=== PATIENT | male | born 1950 | race Caucasian/White ===

== ENCOUNTER 2020-09-29 16:59 | Emergency (ER) | payer MEDICARE, OTHER ==
[~2020-09-29] VITALS: Ht 170.2 cm; Wt 67.1 kg
--- NOTE | 2020-09-29 17:10 | NUR ---
G TUBE REPLACED BY .
[2020-09-29] MEDS ORDERED: DIATR MEGLU/DIATRIZOATE SODIUM 30 ML BOTTLE (GASTROGRAPHIN) ONE (17:12)
--- NOTE | 2020-09-29 17:31 | NUR ---
Patient discharged [facility] in stable condition via ambulance w/ 2 ambulance staff. Written and verbal after care instructions given to ambulance staff.
[2020-09-29 17:34] VITALS: BP 148/75
== END 2020-09-29 17:34 | disposition home or self-care (01) ==
LOC: ER 17:06
DX: K94.23 Gastrostomy malfunction (principal); F03.90 Unspecified dementia, unspecified severity, without behavioral disturbance, psychotic disturbance, mood disturbance, and anxiety; K21.9 Gastro-esophageal reflux disease without esophagitis; F41.9 Anxiety disorder, unspecified; F32.9 Major depressive disorder, single episode, unspecified; F25.9 Schizoaffective disorder, unspecified; Z86.73 Personal history of transient ischemic attack (TIA), and cerebral infarction without residual deficits
CPT/HCPCS: 43762; 74018; 99284; Q9963

== ENCOUNTER 2021-01-27 00:53 | Inpatient (IN) | payer MEDICARE, OTHER ==
[~2021-01-27] VITALS: Ht 167.6 cm; Wt 61.0 kg
--- NOTE | 2021-01-27 00:58 | NUR ---
PATIENT CAME TO THE ER BED 9 FROM [facility] C/O "PULLED OUT G-TUBE" ABOUT 2x HR AGO [employer]. PATIENT IS AAOX1. PATIENT HAS HX OF DEMENTIA. PATIENT IS BREATHING EVENLY AND UNLABORED ON ROOM AIR. CONNECTED TO THE MONITOR.
--- NOTE | 2021-01-27 01:11 | NUR ---
MD AT BEDSIDE FOR G-TUBE INSERTION. UNABLE TO INSERT DUE TO CLOSED SURGICAL SITE.
[2021-01-27 01:36] LABS: BASOPHILS # (AUTO) 0.2 /CMM (0.0-0.2); BASOPHILS % (AUTO) 2.6 % (0.0-2.0); EOSINOPHILS % (AUTO) 7.3 % (0.0-6.0); HEMATOCRIT 47 % (39-51); HEMOGLOBIN 15.9 g/dL (13.5-17.5); LYMPHOCYTES % (AUTO) 26.9 % (20.0-44.0); MEAN CORPUSCULAR HGB CONC 34 g/dl (31.0-36.0); MEAN CORPUSCULAR VOLUME 93 fL (80-96); MONOCYTES # (AUTO) 0.3 /CMM (0.1-1.30); MONOCYTES % (AUTO) 3.9 % (2.0-12.0); NEUTROPHILS # (AUTO) 4.5 /CMM (1.8-8.9); NEUTROPHILS % (AUTO) 59.3 % (43.0-81.0); PLATELET COUNT (AUTO) 211 /CMM (150-450); RED BLOOD CELL COUNT(AUTO) 5.07 MIL/uL (4.5-6.0); WHITE BLOOD COUNT (AUTO) 7.5 K/uL (4.3-11.0)
[2021-01-27 01:46] LABS: CALCIUM, SERUM 8.7 mg/dL (8.5-10.1); CREATININE 0.6 mg/dL (0.6-1.3); POTASSIUM 4.6 mmol/L (3.5-5.1)
--- NOTE | 2021-01-27 02:18 | NUR ---
LAB CALLED FOR COVID NEGATIVE
--- NOTE | 2021-01-27 02:30 | NUR ---
CALLED NURSING SUP FOR MS BED
--- NOTE | 2021-01-27 04:01 | NUR ---
m/s 310-1
--- NOTE | 2021-01-27 04:10 | NUR ---
REPORT GIVEN TO YANIRA LEI FOR YON.
--- NOTE | 2021-01-27 04:42 | NUR ---
PATIENT TAKEN UP TO ASSIGNED ROOM FOR YON.
[2021-01-27 04:45] VITALS: BP 192/74
--- NOTE | 2021-01-27 04:45 | NUR ---
RN NOTES Received pt. from ER with Dx. of G-tube Reinsertion, pt, is a/ox1, left hand is contracted, right arm has soft wrist restraint, make pt. comfortable, morning care rendered, siderailsupx2, will continue to monitor
[2021-01-27 05:00] VITALS: BP 192/74
[2021-01-27] MEDS ORDERED: MORPHINE SULFATE INJ 2 MG/ML DISP.SYRIN IV PRN (06:30)
[2021-01-27] MEDS ORDERED: Z GUARD REMEDY 2 OZ OINT TP PRN (06:30)
[2021-01-27 06:55] VITALS: BP 138/83
--- NOTE | 2021-01-27 06:55 | NUR ---
RN NOTES Rechecked pt. blood pressure, 138/83 HR-52, not indistress, no pain noted, pt. needs attended
[2021-01-27] MEDS: IV D5/0.45 NACL 1,000 ML IV PRN ×2 (06:56→21:14)
[2021-01-27] MEDS ORDERED: ENALAPRILAT INJ (1.25 MG/ML) 1.25 MG/ML VIAL IV PRN (07:00)
--- NOTE | 2021-01-27 07:00 | NUR ---
RN NOTES Endorsed to dayshift nurse to follow up for the MED recon nurse to reconcile the medication
[2021-01-27] MEDS ORDERED: LANS30CA56 GT (07:45)
[2021-01-27] MEDS ORDERED: MULT-447 GT (07:45)
[2021-01-27] MEDS ORDERED: QUET25TA GT (07:45)
[2021-01-27] MEDS ORDERED: CRAN3875 GT (07:45)
[2021-01-27] MEDS ORDERED: ACET-2605 GT (07:45)
[2021-01-27] MEDS ORDERED: ASCO-352 GT (07:45)
[2021-01-27] MEDS ORDERED: SERT25TA GT (07:45)
[2021-01-27] MEDS ORDERED: MAGN400O6 GT (07:45)
[2021-01-27] MEDS ORDERED: HYDR-4209 GT (07:45)
[2021-01-27] MEDS ORDERED: DOCU50LI GT (07:45)
[2021-01-27] MEDS ORDERED: LACT-209 GT (07:45)
[2021-01-27] MEDS ORDERED: LISI20TA30 GT (07:45)
[2021-01-27] MEDS ORDERED: ASPI-1169 GT (07:45)
[2021-01-27] MEDS ORDERED: BISA10SU11 RC (07:45)
[2021-01-27] MEDS ORDERED: CRAN425C6 GT (07:45)
[2021-01-27] MEDS ORDERED: TYL2T GT (07:45)
[2021-01-27] MEDS ORDERED: ACET-868 GT (07:45)
--- NOTE | 2021-01-27 08:00 | NUR ---
MS RN NOTES PATIENT IN BED ALERT ORIENTED X1. NO ACUTE DISTRESS NOTED. BREATHING UNLABORED.IV ACCESS PATENT AND INTACT, NO BLEEDING . NO SWELLING NOTED. BILATERAL SOFT RESTRAINT CHECKED WITH GOOD CIRCULATION. SAFETY MEASURES IN PLACE. CALL LIGHT WITHIN REACH. WILL CONTINUE TO MONITOR ACCORDINGLY
--- NOTE | 2021-01-27 08:22 | NUR ---
MS LEI NOTES PATIENT SEEN AND EVALUATED BY DR TINA JOE WITH NEW ORDER MADE FOR TO OBTAIN CONSENT FOR GASTROSTOMY TUBE PLACEMENT ALREADY SPOKE WITH DR KEYONA DOLAN FOR TOMORROW, ORDER CLARIFIED AND READ BACK WITH MD , NOTED AND CARRIED OUT. Addendum: 01/27/21 at 0848 by CHAD KAMARA RN ADDENDUM: ALSO MENTIONED TO DOCTOR REGARDING MEDICATION RECONCILIATION NEEDS TO BE DONE.
[2021-01-27 08:36] VITALS: BP 172/98
[2021-01-27] MEDS: PANTOPRAZOLE 40 MG VIAL IV SCH (10:01)
[2021-01-27] MEDS ORDERED: BISACODYL SUPP (10 MG) 10 MG/SUPP.RECT SUPP.RECT RC PRN (10:30)
[2021-01-27 16:00] VITALS: BP 178/92
--- NOTE | 2021-01-27 19:00 | NUR ---
MS RN NOTES PATIENT IN BED ALERT ORIENTED X1. NO ACUTE DISTRESS NOTED. BREATHING UNLABORED.IV ACCESS PATENT AND INTACT, NO BLEEDING . NO SWELLING NOTED. BILATERAL SOFT RESTRAINT CHECKED WITH GOOD CIRCULATION. NEEDS ATTENDED AND ANTICIPATED. SAFETY MEASURES IN PLACE. CALL LIGHT WITHIN REACH. WILL ENDORSE TO NIGHT NURSE FOR CONTINUITY OF CARE.
--- NOTE | 2021-01-27 19:35 | NUR ---
QUIQUE MS opening notes Received Pt from morning nurse. Pt is laying in bed comfortably awake and watching TV. Pt is alert and orientedX1 and confused. Pt speaks Ethiopian and able to make needs known. Respiration is normal in room air. NO SOB. No S/S of distress noted. Noted L sided weakness. IV site at R forearm# 20 is clean, intact and infuising well D5 1/2 NS @60 ml/hr. Pt status is NPO. Bilateral soft wrists restraint are intact, skin is warm to touch and circulation is check Q 2 HR. Safety precautions is maintained. Bed at low position, brakes locked, side rails upX3, hob elevated and call light is within reach. Will continue to monitor. Addendum: 01/27/21 at 2107 by ARTURO BORJAS RN R hand soft wrist restraints is intact, skin is warm to touch and circulation is check Q 2 hr.
[2021-01-27 20:00] VITALS: BP 154/70
[2021-01-27] MEDS: ACETAMINOPHEN 650 MG/SUPP.RECT RC PRN (21:00)
--- NOTE | 2021-01-27 21:00 | NUR ---
RN notes Pt is complaining of mild pain on his abdomen and requesting meds. Administered tylenol 650 mg/supp/prn as ordered. Safety precautions is maintained. Will continue to monitor.
--- NOTE | 2021-01-27 23:35 | NUR ---
RN notes Inserted new IV site at RFA#20 with good blood returned. New IV site is clean, intact and flushes well. Will continue to monitor.
[2021-01-28 06:28] LABS: BASOPHILS % (AUTO) 0.3 % (0.0-2.0); HEMATOCRIT 48 % (39-51); LYMPHOCYTES # (AUTO) 2.3 /CMM (0.8-4.8); LYMPHOCYTES % (AUTO) 25.2 % (20.0-44.0); MEAN CORPUSCULAR HGB CONC 34 g/dl (31.0-36.0); MEAN CORPUSCULAR VOLUME 93 fL (80-96); MONOCYTES # (AUTO) 0.6 /CMM (0.1-1.30); MONOCYTES % (AUTO) 6.3 % (2.0-12.0); NEUTROPHILS # (AUTO) 5.8 /CMM (1.8-8.9); NEUTROPHILS % (AUTO) 63.2 % (43.0-81.0); PLATELET COUNT (AUTO) 214 /CMM (150-450); RED BLOOD CELL COUNT(AUTO) 5.13 MIL/uL (4.5-6.0); WHITE BLOOD COUNT (AUTO) 9.2 K/uL (4.3-11.0)
--- NOTE | 2021-01-28 06:45 | NUR ---
RN MS closing notes Pt is resting in bed comfortably. Pt is alert and orientedX1 and confused. Pt speaks Sudanese and able to make needs known. Respiration is normal in room air. NO SOB. No S/S of distress noted. IV site at R forearm# 20 is clean, intact and infuising well D5 1/2 NS @60 ml/hr. Pt status is NPO. R soft wrists restraint is intact, skin is warm to touch and circulation is check Q 2 HR. Kept Pt clean, dry and comfortable. Safety precautions is maintained. Bed at low position, brakes locked, side rails upX3, hob elevated and call light is within reach. Will endorse to morning nurse for YON.
[2021-01-28 07:07] LABS: CALCIUM, SERUM 8.7 mg/dL (8.5-10.1); CREATININE 0.7 mg/dL (0.6-1.3); POTASSIUM 4.4 mmol/L (3.5-5.1)
--- NOTE | 2021-01-28 07:43 | NUR ---
MS RN OPENING NOTES RECEIVED PATIENT IN BED, AWAKE, CONFUSED. PATIENT ON ROOM AIR; BREATHING EVEN AND UNLABORED, NO SOB NOTED AT THIS TIME. NO S/S OF PAIN SUCH FACIAL GRIMACING, MOANING OR GUARDING. IV ACCESS AT RFA G # 20 INFUSING D5 1/2 NS @60 MLS/HR. R SOFT WRIST RESTRAIN ON. SAFETY PRECAUTIONS IN PLACE; BED IN LOCKED POSITION AND LOCKED, RAILS UP X2, CALL LIGHT WITHIN REACH. WILL CONTINUE TO MONITOR PATIENT.
[2021-01-28 08:00] VITALS: BP 180/100
[2021-01-28] MEDS: PANTOPRAZOLE 40 MG VIAL IV SCH (08:19)
--- NOTE | 2021-01-28 08:20 | NUR ---
MS RN NOTES PATIENT NOTED WITH HIGH BP 180/100. PRN MEDICATION VASOTEC ADMINISTERED PER MD ORDER.
[2021-01-28] MEDS ORDERED: NITROGLYCERIN PACKET 1 GM PACKET TOP ONE (08:30)
[2021-01-28] MEDS ORDERED: ANESTHESIA TRAY IN PYXIS 1 EA TRAY MC ONE (09:53)
--- NOTE | 2021-01-28 12:35 | NUR ---
MS RN NOTES PATIENT BACK FROM OR WITH A NEW D-TUBE. VS WNL: BP 142/80 HR 61 TEMP 98.3 RR 18 O2 96% WILL CONTINUE TO MONITOR
[2021-01-28 16:00] VITALS: BP 156/107
[2021-01-28] MEDS: ACETAMINOPHEN 650 MG/SUPP.RECT RC PRN (17:51)
--- NOTE | 2021-01-28 17:53 | NUR ---
MS RN NOTES PATIENT COMPLAINING OF PAIN AT THE G-TUBE SITE; REQUESTING MEDICATION PRN TYLENOL SUPP ADMINISTERED.
--- NOTE | 2021-01-28 18:55 | NUR ---
MS RN CLOSING NOTES PATIENT IN BED, AWAKE, STILL WITH PERIODS OF CONFUSION. PATIENT ON ROOM AIR; BREATHING EVEN AND UNLABORED, NO SOB NOTED AT THIS TIME. PAIN TREATED WITH SUPP PRN TYLENOL. IV ACCESS AT RFA G # 20 INFUSING D5 1/2 NS @60 MLS/HR. R SOFT WRIST RESTRAIN REMAINS ON. NEW G-TUBE INSERTED BY MD TODAY. ALL NEEDS ATTENDED THROUGHOUT THE DAY. SAFETY PRECAUTIONS IN PLACE; BED IN LOCKED POSITION AND LOCKED, RAILS UP X2, CALL LIGHT WITHIN REACH. WILL ENDORSE TO PATIENT ACCESS REGISTRAR NURSE.
--- NOTE | 2021-01-28 19:37 | NUR ---
MS RN OPENING NOTES PATIENT RESTING IN BED A/OX1. ON ROOM AIR TOLERATING WELL WITH NO SOB. NO S/S OF PAIN OR DISCOMFORT AT THIS TIME. RFA G#20 D5 1/2NS @ 60 ML/HR; PATENT AND INTACT. GTUBE PEG INTACT. ABDOMINAL DRESSING IS ON. SOFT RESTRAINT TO RIGHT WRIST; NO SKIN BREAKDOWN TO RIGHT WRIST. MAINTAINED NPO DIET. SAFETY PRECAUTIONS IN PLACE: BED IN LOWEST LOCKED POSITION; SIDE RAILS UPX2, FAISAL LIGHT WITHIN EASY REACH, BED ALARMS ON. PATIENT MEDICALLY STABLE AND WILL CONTINUE PLAN OF CARE.
[2021-01-28 20:00] VITALS: BP 124/74
[2021-01-28] MEDS: IV D5/0.45 NACL 1,000 ML IV PRN (22:35)
[2021-01-29] MEDS ORDERED: JEVITY 1.2 CAL 1,000 ML BOTTLE GT PRN (06:00)
--- NOTE | 2021-01-29 06:39 | NUR ---
MS RN CLOSING NOTES PATIENT AWAKE IN BED A/OX1. ON ROOM AIR TOLERATING WELL WITH NO SOB. NO S/S OF PAIN OR DISCOMFORT AT THIS TIME. RFA G#20 D5 1/2NS @ 60 ML/HR; PATENT AND INTACT. GTUBE PEG INTACT; CHECKED CORRECT PLACEMENT AND HEARD BUBBLING IN STOMACH; INITIATED JEVITY 1.2 @ 20ML/HR; TOLERATING WELL. ABDOMINAL DRESSING IS ON. SOFT RESTRAINT TO RIGHT WRIST; NO SKIN BREAKDOWN TO RIGHT WRIST. MAINTAINED NPO DIET. SAFETY PRECAUTIONS IN PLACE: BED IN LOWEST LOCKED POSITION; PADDED SIDE RAILS UPX3, CALL LIGHT WITHIN EASY REACH, BED ALARMS ON. PATIENT MEDICALLY STABLE AND WILL ENDORSE PLAN OF CARE TO ONCOMING MORNING RN.
--- NOTE | 2021-01-29 08:03 | NUR ---
RN OPENING NOTE PT IS AWAKE IN BED. A/O X 1 AND CONFUSED. ARABIC SPEAKING. NO COMPLAINT OF PAIN OR NAUSEA. ON RA WITH NO SOB OR RESPIRATORY DISTRESS PRESENT. ON BEDREST AND INCONTINENT. SKIN IS INTACT. NO EDEMA PRESENT. L ARM IS CONTRACTED. G TUBE PRESENT. HL PRESENT ON R FA 20G. SAFETY MEASURES IN PLACE. SIDE RAILS RAISED. BED LOWERED. CALL LIGHT WITHIN REACH. WILL CONTINUE TO MONITOR.
[2021-01-29] MEDS: PANTOPRAZOLE 40 MG VIAL IV SCH (08:38)
[2021-01-29 08:53] VITALS: BP 182/115
[2021-01-29] MEDS ORDERED: ASPIRIN 81 MG TAB.CHEW GT SCH (09:00)
[2021-01-29] MEDS ORDERED: LISINOPRIL (20MG) 20 MG TABLET GT SCH (09:00)
[2021-01-29 09:53] VITALS: BP 182/115
--- NOTE | 2021-01-29 13:28 | NUR ---
CESSATION SYSTEMS OUTREACH SPECIALIST NOTE PT DISCHARGED TO [facility] VIA AMBULANCE. GAVE REPORT TO THE NURSING [employer], [employer]. FAMILY AWARE OF DISCHARGE. PATIENT V/S STABLE. IV SITE REMOVED. ID BAND REMOVED. EXITCARE UTILIZED AND EDUCATION GIVEN.
[2021-01-30] MEDS ORDERED: PANTOPRAZOLE 40 MG/PACK PACK GT SCH (09:00)
== END 2021-01-29 13:15 | DRG 393 ==
LOC: ER 00:56 → MED 04:21
PROVIDERS: ADMIT Internal Medicine; ATTEND Internal Medicine
PROC: 0D20XUZ Change Feeding Device in Upper Intestinal Tract, External Approach (ICD-10-PCS; principal; 2021-01-28)
DX: K94.23 Gastrostomy malfunction (principal); N17.0 Acute kidney failure with tubular necrosis; G93.49 Other encephalopathy; Y83.3 Surgical operation with formation of external stoma as the cause of abnormal reaction of the patient, or of later complication, without mention of misadventure at the time of the procedure; Y92.9 Unspecified place or not applicable; F03.90 Unspecified dementia, unspecified severity, without behavioral disturbance, psychotic disturbance, mood disturbance, and anxiety; I10 Essential (primary) hypertension; Z86.73 Personal history of transient ischemic attack (TIA), and cerebral infarction without residual deficits; K21.9 Gastro-esophageal reflux disease without esophagitis; M62.50 Muscle wasting and atrophy, not elsewhere classified, unspecified site; M24.572 Contracture, left ankle; F41.9 Anxiety disorder, unspecified; F32.9 Major depressive disorder, single episode, unspecified; F25.9 Schizoaffective disorder, unspecified; R13.10 Dysphagia, unspecified; R00.1 Bradycardia, unspecified; K29.70 Gastritis, unspecified, without bleeding; Z20.822 Contact with and (suspected) exposure to COVID-19
CPT/HCPCS: 36415; 43760; 71045-TC; 80048-TC; 85025-TC; 85610-TC; 85730-TC; 87081-TC; 93307-TC; C9113; C9803; G0378; J0690; J2704; J3490

== ENCOUNTER 2025-03-13 14:57 | Inpatient (IN) | payer MEDICARE, OTHER ==
[~2025-03-13] VITALS: Ht 167.6 cm; Wt 59.2 kg
[~2025-03-13 14:57] MED LIST: ACET-2605 GT; ACET-868 GT; ASCO-352 GT; ASPI-1169 GT; BISA10SU11 RC; CRAN3875 GT; CRAN425C6 GT; DOCU50LI GT; DOXY100T2 GT; HYDR-4209 GT; LACT-209 GT; LANS30CA56 GT; LISI20TA30 GT; MAGN400O6 GT; MULT-447 GT; QUET25TA GT; SERT25TA GT; TYL2T GT
[2025-03-13 15:36] LABS: BASOPHILS % (AUTO) 0.4 % (0.0-2.0); EOSINOPHILS # (AUTO) 0.1 K/uL (0.0-0.7); EOSINOPHILS % (AUTO) 1.8 % (0.0-6.0); HEMATOCRIT 36 % (39-51); HEMOGLOBIN 12.4 g/dL (13.5-17.5); LYMPHOCYTES # (AUTO) 1.3 K/uL (0.8-4.8); LYMPHOCYTES % (AUTO) 23.3 % (20.0-44.0); MEAN CORPUSCULAR HEMOGLOBIN 31 PG (26.0-33.0); MEAN CORPUSCULAR HGB CONC 34 g/dl (31.0-36.0); MEAN CORPUSCULAR VOLUME 90 fL (80-96); MONOCYTES # (AUTO) 0.4 K/uL (0.1-1.30); MONOCYTES % (AUTO) 6.8 % (2.0-12.0); NEUTROPHILS # (AUTO) 3.8 K/uL (1.8-8.9); NEUTROPHILS % (AUTO) 67.7 % (43.0-81.0); PLATELET COUNT (AUTO) 359 K/uL (150-450); RED BLOOD CELL COUNT(AUTO) 4.02 MIL/uL (4.5-6.0); RED CELL DISTRIBUTION WIDTH 14.5 % (11.5-15.0); WHITE BLOOD COUNT (AUTO) 5.6 K/uL (4.3-11.0)
[2025-03-13 15:45] LABS: CALCIUM, SERUM 8.8 mg/dL (8.5-10.1); CARBON DIOXIDE 29 mmol/L (21-32); CHLORIDE 102 mmol/L (98-107); CREATININE 0.5 mg/dL (0.6-1.3); GLUCOSE 94 mg/dL (74-106); SODIUM SERUM 133 mmol/L (136-145); UREA NITROGEN, BLOOD 10 mg/dL (7-18)
[2025-03-13 15:50] LABS: ALANINE AMINOTRANSFERASE 27 U/L (12-78); ALBUMIN 2.7 g/dL (3.4-5.0); ALKALINE PHOSPHATASE 137 U/L (46-116); ASPARTATE AMINOTRANSFERASE 46 U/L (15-37); BILIRUBIN,DIRECT 0.2 mg/dL (0.0-0.2); BILIRUBIN,TOTAL 0.6 mg/dL (0.2-1.0); TOTAL PROTEIN, SERUM 7.7 g/dL (6.4-8.2)
[2025-03-13 15:53] LABS: LACTIC ACID 0.7 mmol/L (0.4-2.0)
[2025-03-13 15:57] LABS: INR 1.03 (0.91-1.10); PARTIAL THROMBOPLASTIN TIME 29.6 SEC (24.3-34.3); PROTHROMBIN TIME 10.9 SECS (9.2-11.1)
[2025-03-13] MEDS ORDERED: diphenhydrAMINE HCL 50 MG/ML VIAL ONE (16:00)
[2025-03-13] MEDS: IV NS 0.9% 1,000 ML BAG IV ONE (16:17)
[2025-03-13] MEDS: diphenhydrAMINE HCL 50 MG/ML VIAL IV ONE (16:18)
[2025-03-13] MEDS: PIPERACILLIN /TAZOBACTAM 3.375 G in IV D5W 50 ML IV ONE (16:19)
[2025-03-13] MEDS: VANCOMYCIN 1 GM in IV D5W 250 ML IV ONE (16:35)
[2025-03-13] MEDS ORDERED: ACETAMINOPHEN 325 MG TABLET PO PRN (17:30)
[2025-03-13] MEDS ORDERED: MAGNESIUM HYDROXIDE 30 ML UDC PO PRN (17:30)
[2025-03-13] MEDS ORDERED: Z GUARD REMEDY 4 OZ OINT TP PRN (17:30)
[2025-03-13] MEDS ORDERED: MAG HYDROX/AL HYDROX/SIMETH 30 ML UDC PO PRN (17:30)
[2025-03-13] MEDS ORDERED: ONDANSETRON HCL/PF 4 MG/2 ML VIAL IVP PRN (17:30)
[2025-03-13] MEDS ORDERED: ZOLPIDEM TARTRATE 5 MG TABLET PO PRN (17:30)
[2025-03-13 18:00] VITALS: BP 142/85; TEMP 97.5; O2SAT 96
[2025-03-13] MEDS ORDERED: MAGNESIUM HYDROXIDE 30 ML UDC GT PRN ×2 (18:14→18:30)
[2025-03-13] MEDS ORDERED: MAG HYDROX/AL HYDROX/SIMETH 30 ML UDC GT PRN (18:15)
[2025-03-13] MEDS: ENOXAPARIN SODIUM 40 MG/0.4 ML DISP.SYRIN SQ SCH (18:44)
[2025-03-13 20:00] VITALS: BP 130/103; TEMP 97.9; O2SAT 95
[2025-03-13] MEDS: QUETIAPINE FUMARATE 25 MG TABLET GT SCH (20:44)
[2025-03-13] MEDS: DOCUSATE SODIUM LIQ 100 MG/10 ML UDC GT SCH (21:22)
[2025-03-13] MEDS: PIPERACILLIN /TAZOBACTAM 3.375 G in IV D5W 100 ML IV SCH (23:15)
[2025-03-14] MEDS: VANCOMYCIN 1 GM in IV D5W 250ml IV SCH (02:10)
[2025-03-14 06:04] LABS: BASOPHILS % (AUTO) 0.3 % (0.0-2.0); EOSINOPHILS # (AUTO) 0.1 K/uL (0.0-0.7); EOSINOPHILS % (AUTO) 1.4 % (0.0-6.0); HEMATOCRIT 34 % (39-51); HEMOGLOBIN 11.8 g/dL (13.5-17.5); LYMPHOCYTES # (AUTO) 1.3 K/uL (0.8-4.8); LYMPHOCYTES % (AUTO) 18.3 % (20.0-44.0); MEAN CORPUSCULAR HEMOGLOBIN 32 PG (26.0-33.0); MEAN CORPUSCULAR HGB CONC 35 g/dl (31.0-36.0); MEAN CORPUSCULAR VOLUME 91 fL (80-96); MONOCYTES # (AUTO) 0.5 K/uL (0.1-1.30); MONOCYTES % (AUTO) 6.7 % (2.0-12.0); NEUTROPHILS # (AUTO) 5.3 K/uL (1.8-8.9); NEUTROPHILS % (AUTO) 73.3 % (43.0-81.0); PLATELET COUNT (AUTO) 347 K/uL (150-450); RED BLOOD CELL COUNT(AUTO) 3.73 MIL/uL (4.5-6.0); RED CELL DISTRIBUTION WIDTH 14.2 % (11.5-15.0); WHITE BLOOD COUNT (AUTO) 7.2 K/uL (4.3-11.0)
[2025-03-14 06:30] LABS: CALCIUM, SERUM 8.4 mg/dL (8.5-10.1); CREATININE 0.5 mg/dL (0.6-1.3); MAGNESIUM 2.1 mg/dL (1.8-2.4); PHOSPHORUS 2.6 mg/dL (2.5-4.9); POTASSIUM 3.8 mmol/L (3.5-5.1)
[2025-03-14 07:00] VITALS: BP 167/75; TEMP 97.9; O2SAT 96
[2025-03-14 08:00] VITALS: BP 154/102; TEMP 97.9; O2SAT 96
[2025-03-14] MEDS: PANTOPRAZOLE 40 MG TABLET.DR PO SCH ×2 (08:42→08:44)
[2025-03-14] MEDS: LISINOPRIL (20MG) 20 MG TABLET GT SCH (08:42)
[2025-03-14] MEDS: ASCORBIC ACID 500 MG TABLET GT SCH (08:43)
[2025-03-14] MEDS: ASPIRIN 81 MG TAB.CHEW GT SCH (08:43)
[2025-03-14] MEDS: SERTRALINE HCL 25 MG TABLET GT SCH (08:43)
[2025-03-14] MEDS: MULTIVIT W/MINERALS 1 TAB TABLET GT SCH (08:43)
[2025-03-14] MEDS: HYDROCODONE/APAP 5/325MG TABLET GT PRN (08:53)
[2025-03-14] MEDS ORDERED: Medication Not On Formulary EA (Cranberry Extract (Cranberry) 425 MG) GT SCH (09:00)
[2025-03-14] MEDS ORDERED: Medication Not On Formulary EA (Cran/Vitc/Mannose/Inulin/Brom (Uti-Stat Liquid) 3,875 MG GT SCH (09:00)
[2025-03-14] MEDS ORDERED: CLONIDINE HCL 0.1 MG TABLET GT PRN (09:30)
[2025-03-14] MEDS ORDERED: GUAI100S9 GT (09:46)
[2025-03-14] MEDS ORDERED: CRAN300T GT (09:46)
[2025-03-14] MEDS ORDERED: AMLO-212 GT (09:46)
[2025-03-14] MEDS ORDERED: NUTR250L50 PO (09:46)
[2025-03-14] MEDS ORDERED: HEPA50007 SQ (09:46)
[2025-03-14] MEDS ORDERED: ACET-637 GT (09:46)
[2025-03-14] MEDS ORDERED: IPRA3AMP23 IH (09:46)
[2025-03-14] MEDS ORDERED: NYST30OI2 TP (09:46)
[2025-03-14] MEDS: JEVITY 1.2 CAL 1,000 ML BOTTLE GT PRN (10:13)
[2025-03-14] MEDS: diphenhydrAMINE HCL ELIX 25 MG/10 ML UDC GT PRN (13:53)
[2025-03-14] MEDS ORDERED: GUAIFENESIN 300 MG/15 ML UDC GT PRN (14:00)
[2025-03-14 16:00] VITALS: BP_SYST 142; BP_SYST 147; BP_DIAS 90; TEMP 97.5; O2SAT 97
[2025-03-14] MEDS: AMLODIPINE BESYLATE 5 MG TABLET GT SCH (17:08)
[2025-03-14 20:00] VITALS: BP 106/75; TEMP 97.5; O2SAT 95
[2025-03-15 06:15] LABS: BASOPHILS % (AUTO) 0.2 % (0.0-2.0); EOSINOPHILS # (AUTO) 0.1 K/uL (0.0-0.7); EOSINOPHILS % (AUTO) 1.9 % (0.0-6.0); HEMATOCRIT 34 % (39-51); HEMOGLOBIN 11.5 g/dL (13.5-17.5); LYMPHOCYTES # (AUTO) 1.8 K/uL (0.8-4.8); LYMPHOCYTES % (AUTO) 28.9 % (20.0-44.0); MEAN CORPUSCULAR HEMOGLOBIN 31 PG (26.0-33.0); MEAN CORPUSCULAR HGB CONC 34 g/dl (31.0-36.0); MEAN CORPUSCULAR VOLUME 92 fL (80-96); MONOCYTES # (AUTO) 0.5 K/uL (0.1-1.30); MONOCYTES % (AUTO) 8.7 % (2.0-12.0); NEUTROPHILS # (AUTO) 3.7 K/uL (1.8-8.9); NEUTROPHILS % (AUTO) 60.3 % (43.0-81.0); PLATELET COUNT (AUTO) 357 K/uL (150-450); RED BLOOD CELL COUNT(AUTO) 3.69 MIL/uL (4.5-6.0); RED CELL DISTRIBUTION WIDTH 14.6 % (11.5-15.0); WHITE BLOOD COUNT (AUTO) 6.2 K/uL (4.3-11.0)
[2025-03-15 06:23] LABS: CALCIUM, SERUM 8.6 mg/dL (8.5-10.1); CREATININE 0.8 mg/dL (0.6-1.3); MAGNESIUM 2.3 mg/dL (1.8-2.4); PHOSPHORUS 3.5 mg/dL (2.5-4.9); POTASSIUM 4.2 mmol/L (3.5-5.1)
[2025-03-15 08:00] VITALS: BP 104/77; TEMP 97.5; O2SAT 97
[2025-03-15] MEDS: NYSTATIN/TRIAMCIN 15 GM CREAM 15 GM TUBE TP SCH (09:23)
[2025-03-15] MEDS: VANCOMYCIN 750 MG in IV D5W 250 ML IV SCH (12:22)
[2025-03-15 16:00] VITALS: BP 143/110; TEMP 97.8; O2SAT 98
[2025-03-15 20:00] VITALS: BP 145/88; TEMP 97.5; O2SAT 96
[2025-03-15] MEDS: ACETAMINOPHEN ES 500 MG TABLET GT PRN (22:27)
[2025-03-15 23:26] VITALS: TEMP 97.5
[2025-03-16] MEDS: JEVITY 1.2 CAL 1,000 ML BOTTLE GT SCH (06:29)
[2025-03-16 06:43] LABS: CALCIUM, SERUM 8.6 mg/dL (8.5-10.1); CREATININE 0.7 mg/dL (0.6-1.3); MAGNESIUM 2.5 mg/dL (1.8-2.4); PHOSPHORUS 3.8 mg/dL (2.5-4.9); POTASSIUM 4.3 mmol/L (3.5-5.1)
[2025-03-16 07:59] LABS: BASOPHILS % (AUTO) 0.2 % (0.0-2.0); EOSINOPHILS # (AUTO) 0.3 K/uL (0.0-0.7); EOSINOPHILS % (AUTO) 4.4 % (0.0-6.0); HEMATOCRIT 36 % (39-51); HEMOGLOBIN 12.1 g/dL (13.5-17.5); LYMPHOCYTES # (AUTO) 1.9 K/uL (0.8-4.8); LYMPHOCYTES % (AUTO) 26.1 % (20.0-44.0); MEAN CORPUSCULAR HEMOGLOBIN 31 PG (26.0-33.0); MEAN CORPUSCULAR HGB CONC 33 g/dl (31.0-36.0); MEAN CORPUSCULAR VOLUME 92 fL (80-96); MONOCYTES # (AUTO) 0.7 K/uL (0.1-1.30); MONOCYTES % (AUTO) 9.9 % (2.0-12.0); NEUTROPHILS # (AUTO) 4.3 K/uL (1.8-8.9); NEUTROPHILS % (AUTO) 59.4 % (43.0-81.0); PLATELET COUNT (AUTO) 371 K/uL (150-450); RED BLOOD CELL COUNT(AUTO) 3.94 MIL/uL (4.5-6.0); WHITE BLOOD COUNT (AUTO) 7.3 K/uL (4.3-11.0)
[2025-03-16 08:25] VITALS: BP 125/81; O2SAT 98
[2025-03-16] MEDS ORDERED: VANCOMYCIN 750 MG in IV D5W 250 ML IV SCH (08:30)
[2025-03-16 09:06] VITALS: BP 125/81
[2025-03-16] MEDS ORDERED: VANCOMYCIN 1 GM in IV D5W 250ml IV SCH (17:00)
[2025-03-17] MEDS ORDERED: PANTOPRAZOLE 40 MG/PACK PACK NG SCH (07:30)
== END 2025-03-16 15:08 | DRG 603 ==
LOC: ER 15:01 → MED 16:44
PROVIDERS: ADMIT Student in an Organized Health Care Education/Training Program
DX: L03.114 Cellulitis of left upper limb (principal); N39.0 Urinary tract infection, site not specified; E44.0 Moderate protein-calorie malnutrition; E87.1 Hypo-osmolality and hyponatremia; G93.40 Encephalopathy, unspecified; G93.49 Other encephalopathy; F01.50 Vascular dementia, unspecified severity, without behavioral disturbance, psychotic disturbance, mood disturbance, and anxiety; Z74.01 Bed confinement status; R13.10 Dysphagia, unspecified; Z78.1 Physical restraint status; I12.9 Hypertensive chronic kidney disease with stage 1 through stage 4 chronic kidney disease, or unspecified chronic kidney disease; Z86.73 Personal history of transient ischemic attack (TIA), and cerebral infarction without residual deficits; Z79.899 Other long term (current) drug therapy; Z93.1 Gastrostomy status; L29.9 Pruritus, unspecified; K21.9 Gastro-esophageal reflux disease without esophagitis; F20.9 Schizophrenia, unspecified; F32.A Depression, unspecified; D64.9 Anemia, unspecified; Z79.82 Long term (current) use of aspirin; N18.9 Chronic kidney disease, unspecified; M62.572 Muscle wasting and atrophy, not elsewhere classified, left ankle and foot; M24.572 Contracture, left ankle; T46.4X5A Adverse effect of angiotensin-converting-enzyme inhibitors, initial encounter; Y92.9 Unspecified place or not applicable; R79.89 Other specified abnormal findings of blood chemistry; S50.812A Abrasion of left forearm, initial encounter; X58.XXXA Exposure to other specified factors, initial encounter
CPT/HCPCS: 36415; 71045-TC; 73030-TC; 73070-TC; 73100-TC; 80048-TC; 80076-TC; 80202-TC; 82962-TC; 83605-TC; 83735-TC; 84100-TC; 85025-TC; 85730-TC; 87040-TC; 87081-TC; 93971-TC; A4223; G0378; J1200; J1650; J2543; J3370; J3371; J7030; J7040; J7050; J7060; Q0163